=== PATIENT | female | born 1980 | race Asian ===

== ENCOUNTER 2017-08-31 17:15 | Outpatient (CLI) | payer MEDICAID, SELFPAY ==
[2017-08-31 17:55] VITALS: BMI 20.7
[2017-08-31 18:27] LABS: ROM Internal Control Test YES-OK TO RESULT pt. (Internal QC); ROM Patient Test Negative (Negative)
--- NOTE | 2017-08-31 20:05 | OB.TRI.NOTE ---
History of Present Illness Date of Service: 08/31/17 Was patient seen by the physician?: No Reason For Visit: R/O ROM Date of Service: 08/31/17 Final TAMIKA: 11/14/17 Gestational age: 29 Weeks and 2 Days History of Present Illness: 37yo G1 with c/o leaking of fluid Home Medications Medication Instructions Recorded Vits [Prenatabs FA] 1 tablet PO DAILY 08/31/17 Allergies No Known Allergies Allergy (Verified 08/31/17 17:57) NST - FHR Rate Baby A Baseline: 135 Variability:: Moderate Accelerations:: 15 x 15 Decelerations:: None NST Reactive:: Yes FHR Category:: Category I Uterine Activity:: 0-1/10 min Impression/Plan 37yo G1 with false labor, FHR AGA and reactive -ROM plus negative -d/c home
== END 2017-08-31 18:55 | disposition home or self-care (01) ==
LOC: WPOUT 17:33 → WP 17:33
PROVIDERS: Visit Provider Obstetrics & Gynecology
DX: O47.03 False labor before 37 completed weeks of gestation, third trimester (principal); Z3A.29 29 weeks gestation of pregnancy
CPT/HCPCS: 59025; 59050; 84112; 99218; G0378

== ENCOUNTER → 2017-09-04 11:32 | Outpatient (CLI) | payer MEDICAID, SELFPAY ==
[2017-09-04 12:22] LABS: Hematocrit 31.6 % (37-47); Hemoglobin 11.1 g/dl (12.0-15.0); Mean Corp Hgb Conc 35.1 g/gl (32-36); Mean Corpuscular Hgb 33.7 pg (27.0-32.0); Mean Platelet Vol. 10.2 fl (6.2-12.0); Platelet Count 204 K/mm3 (150-450); RBC Distribution Width CV 12.7 % (11.6-14.6); RBC Distribution Width SD 42.6 fl (35.1-43.9); Red Blood Count 3.29 M/mm3 (4.2-5.4); White Blood Count 6.6 K/mm3 (4.4-11.0)
[2017-09-04 12:30] LABS: Scan Indicated on CBC? Y/N NO
[2017-09-04 12:36] LABS: Glucose Challenge Gest 1H 50g 104 mg/dL (70-140)
== END ==
PROVIDERS: Visit Provider Obstetrics & Gynecology
DX: Z34.83 Encounter for supervision of other normal pregnancy, third trimester (principal)
CPT/HCPCS: 36415; 82950; 85027

== ENCOUNTER → 2017-10-16 11:50 | Outpatient (CLI) | payer MEDICAID, SELFPAY ==
--- NOTE | 2017-10-16 11:50 | DT_ITS ---
This patient was seen during an EMR downtime October 16, 2017 - October 23, 2017. This patient may have a combination of paper and electronic documentation or all paper documentation. All documentation is viewable within the e-chart portion of [email or web address] for each patient visit.
[2017-10-22 11:46] LABS: Group B Strep DNA By PCR Negative (Negative); Internal Control PASS; Probe Check PASS; Specimen Processing Control PASS
== END ==
PROVIDERS: Visit Provider Obstetrics & Gynecology
DX: Z36.85 Encounter for antenatal screening for Streptococcus B (principal)
CPT/HCPCS: 87081; 87653

== ENCOUNTER 2017-11-09 22:45 | Outpatient (CLI) | payer MEDICAID, SELFPAY ==
[2017-11-09 23:59] VITALS: BMI 24.8
--- NOTE | 2017-11-10 13:10 | OB.TRI.NOTE ---
- Problem List (1) 39 weeks gestation of Status: Acute History of Present Illness Date of Service: 11/09/17 Was patient seen by the physician?: No Reason For Visit: R/O LABOR Final TAMIKA: 11/14/17 Final TAMIKA Source: US <20 weeks Gestational age: 39 Weeks and 2 Days History of Present Illness: 37yo G1 @ 39 2/7wga with c/o contractions Allergies No Known Allergies Allergy (Verified 08/31/17 17:57) Physical Exam Vitals: AVSS NST - FHR Rate Baby A Baseline: 125 Variability:: Moderate Accelerations:: 15 x 15 Decelerations:: None NST Reactive:: Yes FHR Category:: Category I Uterine Activity:: 1-06/24 Impression/Plan False labor at 39wga -SVE /-3 per RN exam -d/c home
== END 2017-11-10 02:00 | disposition home or self-care (01) ==
LOC: WPOUT 23:12 → WP 23:14
PROVIDERS: Visit Provider Obstetrics & Gynecology
DX: O47.1 False labor at or after 37 completed weeks of gestation (principal); Z3A.39 39 weeks gestation of pregnancy
CPT/HCPCS: 59025; 59050; 99218; G0378

== ENCOUNTER 2017-11-11 03:00 | Inpatient (IN) | payer MEDICAID, SELFPAY ==
[2017-11-11] VITALS (7 sets, daily range): BP systolic 89–102; BP diastolic 46–58; PULSE 60–74; RESP 14–18; TEMP 36.7–37.2; O2SAT 97–98; BMI 23.7
[2017-11-11] MEDS: Lactated Ringers 1,000 ML 50 ML IV ×3 (03:35→07:52)
[2017-11-11 04:01] LABS: Hematocrit 39.1 % (37-47); Hemoglobin 13.9 g/dl (12.0-15.0); Mean Corp Hgb Conc 35.5 g/gl (32-36); Mean Corpuscular Hgb 33.7 pg (27.0-32.0); Mean Corpuscular Volume 94.9 fL (81-99); Mean Platelet Vol. 10.4 fl (6.2-12.0); Platelet Count 230 K/mm3 (150-450); RBC Distribution Width SD 43.3 fl (35.1-43.9); Red Blood Count 4.12 M/mm3 (4.2-5.4); White Blood Count 12.5 K/mm3 (4.4-11.0)
[2017-11-11 04:03] LABS: Scan Indicated on CBC? Y/N NO
[2017-11-11] MEDS: fentaNYL-bupivacaine (epidural) 100 ML BAG EPIDURAL (04:45)
[2017-11-11] MEDS: Oxytocin 30 units/NS 500 ml 30 UNITS/500 ML IV.SOLN 334 UNITS IV (09:30)
--- NOTE | 2017-11-11 09:47 | PCM.OB.VAG ---
Vaginal Delivery Maternal Presentation: Active Labor Amniotic Membrane Rupture Type: Artificial Amniotic Fluid Description: Clear Final TAMIKA: 11/14/17 Final TAMIKA Source: US <20 weeks Gestational age: 39 Weeks and 4 Days Date of Procedure: 11/11/17 Pre-Operative Diagnosis: IUP Post-Operative Diagnosis: IUP Surgery/ Procedure Performed: Spontaneous Vaginal Delivery Type of Anesthesia: Epidural, Local with 1% lidocaine Description of Procedure: Spontaneous vaginal delivery of a viable female infant with Apgars of 9/10 with a normal three-vessel placenta. Occiput anterior presentation. First-degree midline episiotomy extended to a second-degree midline laceration repaired in layers with 3-0 Vicryl suture under epidural and local anesthesia. Sponge counts okay. Delivery physician: Noé Reardon MD. Presentation: Vertex Placental Delivery Description: Spontaneous Placenta Disposition: [facility] Cord Vessel Description: 3 Vessels Cord Gases drawn per routine: ABG Cord Entanglement: None Estimated Blood Loss: 250 cc A gender: Female (1 minute): 9 (5 minute): 10 Episiotomy Description: Midline, 1st degree Laceration: Midline, Perineal Extension/lac, 2nd degree Medications given after delivery: IV Pitocin Complications: None
--- NOTE | 2017-11-11 09:50 | PCM.DCVAG ---
Discharge Diet: No Restrictions Discharge Activity: May Shower, May Take a Tub Bath May resume sexual activity in: 4-6 weeks Additional Activity Instructions:: Nothing in the vagina for 4-6 weeks. You may return to work/school in 6 weeks. Call your doctor if you observe: Fever of 101 or Higher, Inability to urinate, Inability to have a bowel movement, Using more than one pad per hour Additional Instructions: If you experience any of the following, contact your healthcare provider. Bleeding that soaks a pad every hour for 2 hours Unrelieved incision or abdominal pain Swelling, redness, discharge or bleeding from your incision or episiotomy site Your incision begins to separate Problems urinating (including inability to urinate or burning while urinating). Visual changes Severe headache Flu-like symptoms Pain or redness in one of both of your breasts Pain, warmth, tenderness or swelling in your legs, especially the calf area Frequent nausea and vomiting Symptoms of depression or anxiety If you experience any of the following, call 911 or go to the nearest Emergency Room. Chest pain Problems breathing Seizure activity Partial or complete paralysis of a body part, slurred speech, weakness or drooping of the face, or a sudden inability to walk or hold your balance Allergies/Adverse Reactions: Allergies No Known Allergies Allergy (Verified 11/11/17 03:39) Medications to take at Discharge Vits [Prenatabs FA] 1 tablet PO DAILY 08/31/17 Ferrous Sulfate [Iron] 1 tab PO BID 11/10/17 Please Follow Up With: Micheal Batres MD - [phone] When: Call to make an appointment with your doctor in 6 weeks. Primary Care Physician: Care Physician,No Primary [Primary Care Provider] -
--- NOTE | 2017-11-11 09:51 | DCINST_ITS ---
Discharge Diet: No Restrictions Discharge Activity: May Shower, May Take a Tub Bath May resume sexual activity in: 4-6 weeks Additional Activity Instructions:: Nothing in the vagina for 4-6 weeks. You may return to work/school in 6 weeks. Call your doctor if you observe: Fever of 101 or Higher, Inability to urinate, Inability to have a bowel movement, Using more than one pad per hour Additional Instructions: If you experience any of the following, contact your healthcare provider. * Bleeding that soaks a pad every hour for 2 hours * Unrelieved incision or abdominal pain * Swelling, redness, discharge or bleeding from your incision or episiotomy site * Your incision begins to separate * Problems urinating (including inability to urinate or burning while urinating) . * Visual changes * Severe headache * Flu-like symptoms * Pain or redness in one of both of your breasts * Pain, warmth, tenderness or swelling in your legs, especially the calf area * Frequent nausea and vomiting * Symptoms of depression or anxiety If you experience any of the following, call 911 or go to the nearest Emergency Room. * Chest pain * Problems breathing * Seizure activity * Partial or complete paralysis of a body part, slurred speech, weakness or drooping of the face, or a sudden inability to walk or hold your balance Allergies/Adverse Reactions: Allergies No Known Allergies Allergy (Verified 11/11/17 03:39) Medications to take at Discharge Vits [Prenatabs FA] 1 tablet PO DAILY 08/31/17 Ferrous Sulfate [Iron] 1 tab PO BID 11/10/17 Please Follow Up With: Micheal Batres MD - [phone] When: Call to make an appointment with your doctor in 6 weeks. Primary Care Physician: Care Physician,No Primary [Primary Care Provider] -
[2017-11-11] MEDS: Oxytocin 30 units/NS 500 ml 30 UNITS/500 ML IV.SOLN 167 UNITS IV (10:00)
[2017-11-11] MEDS: Acetaminophen 325 MG Tablet PO (10:06)
--- NOTE | 2017-11-11 11:50 | NURSING ---
Patient up out of bed for first time with nurse assistance to ambulate to the bathroom. When patient sat on toilet, she became dizzy. Additional assistance was requested along with smelling salts. Patient did have syncopal episode on toilet. She responded to smelling salts. Patient's spouse assisted me in transferring patient into wheelchair with the help of two other staff. Patient transferred to bed and laid in the supine position. Vital signs: BP: 92/52, Pulse: 50, SpO2: 94%, Resp: 14. Patient responds to vocal stimuli. Will continue to monitor. Patient will remain supine. Lunch ordered.
--- NOTE | 2017-11-11 17:33 | NURSING ---
Monitored patient while she ambulated to restroom independently on two occasions. Patient denied symptoms of dizziness and tolerated ambulation well.
[2017-11-11] MEDS: Ibuprofen 600 MG Tablet PO (20:21)
[2017-11-12 02:24] VITALS: BP 90/48; PULSE 66; RESP 16; TEMP 36.3; O2SAT 98
[2017-11-12] MEDS: Ibuprofen 600 MG Tablet PO ×2 (02:42→13:02)
[2017-11-12 08:00] VITALS: BP 91/51; PULSE 67; RESP 16; TEMP 36.4; O2SAT 98
--- NOTE | 2017-11-12 09:18 | PCM.PN.OB ---
Subjective: Patient without complaints. Breast-feeding going well. Bleeding has subsided. - Physical Exam Vital Signs Temp Pulse Resp BP Pulse Ox 97.6 F L 67 16 91/51 L 98 11/12/17 08:00 11/12/17 08:00 11/12/17 08:00 11/12/17 08:00 11/12/17 08:00 Oxygen Delivery Method Room Air Weight: 150 lb 5.684 oz Body Mass Index (BMI) 23.7 Intake and Output for Last 24 Hours 11/10/17 11/11/17 11/12/17 23:59 23:59 23:59 Intake Total 2024 / 2024 Output Total 1000 / 1000 Balance 1025 / 1025 Medical Necessity - Tobacco Use Smoking Status: Never smoker Assessment/Plan All Active Problems 39 weeks gestation of (Acute) Doing well day #1. Continuing present care.
[2017-11-12 13:05] VITALS: BP 92/46; PULSE 66; RESP 16; TEMP 36.3; O2SAT 97
[2017-11-12 19:50] VITALS: BP 84/50; PULSE 75; RESP 16; TEMP 36.4; O2SAT 98
[2017-11-12] MEDS: Acetaminophen 500 MG Tablet 1000 MG PO (20:14)
[2017-11-12] MEDS: Senna/Docusate Sodium 1 Tablet PO (20:15)
[2017-11-13 03:05] VITALS: BP 95/61; PULSE 61; RESP 16; TEMP 36.5
[2017-11-13] MEDS: Ibuprofen 600 MG Tablet PO ×2 (03:20→09:17)
[2017-11-13 09:20] VITALS: BP 98/62; PULSE 84; RESP 16; TEMP 36.6; O2SAT 99
--- NOTE | 2017-11-13 09:57 | PCM.PN.OB ---
Subjective: No complaints. Breast feeding. Bleeding light. Objective: Afeb VSS - Physical Exam General: Alert, Oriented x3, Cooperative, No apparent distress Lungs: Clear to auscultation, Normal air movement Cardiovascular: Regular rate, Regular Rhythm Abdomen: Non Tender, Non-Distended Extremities: No edema, No Calf Tenderness Skin: No rashes Neurological: Neuro grossly intact Psych/Mental Status: Normal Affect Comment: Lochia light Vital Signs Temp Pulse Resp BP Pulse Ox 97.8 F 84 16 98/62 99 11/13/17 09:20 11/13/17 09:20 11/13/17 09:20 11/13/17 09:20 11/13/17 09:20 Oxygen Delivery Method Room Air Weight: 150 lb 5.684 oz Body Mass Index (BMI) 23.7 Intake and Output for Last 24 Hours 11/11/17 11/12/17 11/13/17 23:59 23:59 23:59 Intake Total 2024 / 2024 Output Total 1000 / 1000 Balance 1025 / 1025 Medical Necessity - Tobacco Use Smoking Status: Never smoker Assessment/Plan All Active Problems 39 weeks gestation of (Acute) Doing well on PP day#2. Cleared for discharge home today. Home going instructions and warnings given.
--- NOTE | 2017-11-13 10:00 | PCM.DC.SUM ---
Discharge Date and Diagnosis Date of Admission: 11/11/17 Date of Discharge: 11/13/17 - Primary Discharge Diagnosis s/p Hospital Course and Treatment Consultations 11/11/17 03:35 Consult: Anesthesia Routine Comment: Reason For Exam: LABOR Operations: None Procedures: - - Epidural, Summary of Care Provided: The patient is a 37 year old F [admitted in active labor, progressed to FD then pushed to deliver a live female without complication. PP course unremarkable. Discharged home on PP day#2.] Discharge Diet: No Restrictions Discharge Activity: May Shower, May Take a Tub Bath May resume sexual activity in: 4-6 weeks Additional Activity Instructions:: Nothing in the vagina for 4-6 weeks. You may return to work/school in 6 weeks. Call your doctor if you observe: Fever of 101 or Higher, Inability to urinate, Inability to have a bowel movement, Using more than one pad per hour Home Medications: Medications to take at Discharge Vits [Prenatabs FA] 1 tablet PO DAILY 08/31/17 Ferrous Sulfate [Iron] 1 tab PO BID 11/10/17 Primary Care Physician: Care Physician,No Primary [Primary Care Provider] - Please Follow Up With: Micheal Batres MD - [phone] When: 6 weeks Disposition: Home Minutes spent on discharge:: 15 Patient Condition:: Good Medical Necessity - Tobacco Use Smoking Status: Never smoker Meaningful Use Info Meaningful Use Diagnoses (Choose all that apply): None applicable
[2017-11-13 14:00] VITALS: BP 98/62; PULSE 79; RESP 16; TEMP 36.6; O2SAT 98
== END 2017-11-13 18:15 | disposition home or self-care (01) | DRG 373 ==
PROVIDERS: Admitting Provider Obstetrics & Gynecology; Visit Provider Obstetrics & Gynecology
DX: O70.1 Second degree perineal laceration during delivery (principal); O47.1 False labor at or after 37 completed weeks of gestation; Z3A.39 39 weeks gestation of pregnancy; Z37.0 Single live birth
CPT/HCPCS: 59025; 59050; 85027; 86850; 86900; 99218; J7120; G0378

== ENCOUNTER → 2018-02-19 14:28 | Outpatient (CLI) | payer MEDICAID, SELFPAY ==
[2018-02-23 13:34] LABS: HPV HC, High Risk Negative (Negative)
== END ==
PROVIDERS: Visit Provider Obstetrics & Gynecology
DX: Z12.4 Encounter for screening for malignant neoplasm of cervix (principal)
CPT/HCPCS: 87624; 88175; G0145